=== PATIENT | male | born 1985 | race Caucasian/White ===

== ENCOUNTER 2017-02-11 22:00 | Emergency (ER) | payer OTHER ==
[2017-02-11 22:14] VITALS: BP 126/81; PULSE 79; TEMP 98.9; BMI 32.3
--- NOTE | 2017-02-11 23:31 | PDOC ---
[id number] WOUND Time Seen by Provider: 02/11/17 22:31 - History of Present Illness Initial Comments: 02/11/17 22:37 CHIEF COMPLAINT: abscess to R hand HISTORY OF PRESENT ILLNESS: 31 yo M with no PMH presents to ED with abscess between thumb and index finger on the right hand. Patient states that about 3 months ago he was using a drill and the drill went into his finger. He did not seek medical attention at the time, and the site of injury "healed with a little bubble, but then it kind of went away so I didn't think about it very much." Three days ago he noticed some swelling in the region, and over the past two days it has gotten worse and is now red, swollen, and painful. He reports having "like 7 tetanus shots in the past 5 years." He denies any fever, nausea, vomiting, or diarrhea. PAST MEDICAL HISTORY: Denies past medical history FAMILY HISTORY: Denies SOCIAL HISTORY: Denies tobacco, alcohol, illicit drug use. SURGICAL HISTORY: Denies ALLERGIES: No known drug allergies REVIEW OF SYSTEMS General/Constitutional: Denies fever or chills. Denies weakness, weight change. Cardiovascular: Denies chest pain or shortness of breath. Respiratory: Denies cough, wheezing, or hemoptysis. Gastrointestinal: Denies nausea, vomiting, diarrhea or constipation. Denies rectal bleeding. Musculoskeletal: Denies joint or muscle swelling or pain. Denies neck or back pain. Skin and breasts: Abscess to R hand. Denies rash or easy bruising. PHYSICAL EXAM General Appearance: Well-appearing, appropriately dressed. Respiratory/Chest: Lungs CTAB. Cardiovascular: RRR. S1, S2. Integumentary: 2cm x 2 cm erythematous, indurated abscess to dorsal aspect of R hand between thumb and index finger. Appropriate color, dry, warm. No cyanosis , erythema, jaundice or rash Neurologic: joint cutter machine II-XII intact. Fully oriented, alert. Appropriate mood/affect. Motor strength 5/5. No appreciable EOM palsy, facial droop or sensory deficit. Past History - Past Medical History Allergies/Adverse Reactions: Allergies Allergy/AdvReac Type Severity Reaction Status Date / Time No Known Allergies Allergy Verified 02/11/17 23:01 Home Medications: Ambulatory Orders Sulfamethoxazole/Trimethoprim [Bactrim Ds -] 1 tab PO BID #20 tablet 02/14/17 - Psycho/Social/Smoking Cessation Hx Anxiety: No Suicidal Ideation: No Smoking History: Never smoked Have you smoked in the past 12 months: No Information on smoking cessation initiated: No Hx Alcohol Use: No Drug/Substance Use Hx: No Substance Use Type: None *Physical Exam - Vital Signs Last Vital Signs Temp Pulse Resp BP Pulse Ox 98.9 F 79 18 126/81 100 02/11/17 22:10 02/11/17 22:10 02/11/17 22:10 02/11/17 22:10 02/11/17 22:10 Procedures - Incision and Drainage I&D Site: Right: Other (Hand) Betadine cleansed: Yes Anesthesia: 1% Lidocaine Volume(ml): 3 Blade Size: 11 Attempts: 1 Plain Packing: Yes (.5 inch) Dressing: Yes (xeroform dressing, kerlix bandage) ED Treatment Course - RADIOLOGY Radiology Studies Ordered: Category Date Time Status HAND- RIGHT [RAD] Stat Radiology 02/11/17 22:36 Ordered Medical Decision Making - Medical Decision Making 02/12/17 04:48 31 yo M with no PMH presents to ED with abscess between thumb and index finger on the right hand. -I&D of abscess performed (see procedure note) Advised patient to return in 2 days for wound check and of signs and symptoms for return to ER. Patient verbalized understanding and agrees to plan. *DC/Admit/Observation/Transfer Diagnosis at time of Disposition: Abscess - Discharge Dispostion Disposition: HOME Admit: No - Referrals Referrals: Humaira Traylor MD [Primary Care Provider] - - Patient Instructions Printed Discharge Instructions: DI for Incision and Drainage of a Skin Abscess Additional Instructions: As discussed, please return in 48 hours for a wound check. Please keep the wound site clean and dry for 48 hours, afterwards you may wash with soap and water. If you experience any fever, nausea, vomiting, diarrhea, or notice increased swelling, redness, pain, or warmth to the area of injury, please return to the ER.
--- NOTE | 2017-02-12 00:06 | PDOC ---
*Physical Exam - Vital Signs Last Vital Signs Temp Pulse Resp BP Pulse Ox 98.9 F 79 18 126/81 100 02/11/17 22:10 02/11/17 22:10 02/11/17 22:10 02/11/17 22:10 02/11/17 22:10 Medical Decision Making - Medical Decision Making 02/12/17 00:05 agree with care from MERY Glasgow *DC/Admit/Observation/Transfer Diagnosis at time of Disposition: Abscess - Discharge Dispostion Disposition: HOME - Referrals Referrals: Humaira Traylor MD [Primary Care Provider] - - Patient Instructions Printed Discharge Instructions: DI for Incision and Drainage of a Skin Abscess Additional Instructions: As discussed, please return in 48 hours for a wound check. Please keep the wound site clean and dry for 48 hours, afterwards you may wash with soap and water. If you experience any fever, nausea, vomiting, diarrhea, or notice increased swelling, redness, pain, or warmth to the area of injury, please return to the ER.
[2017-02-12] MEDS ORDERED: ACETAMINOPHEN 325 MG TABLET (FP) ONE (01:08)
== END 2017-02-12 01:12 | disposition home or self-care (01) ==
LOC: SUPCPDRO 22:00 → JER 22:00
PROC: 0H9FXZZ Drainage of Right Hand Skin, External Approach (ICD-10-PCS; principal; 2017-02-11)
DX: L02.511 Cutaneous abscess of right hand (principal)
CPT/HCPCS: 73130-TC-RT; 99283-25

== ENCOUNTER 2017-02-14 18:53 | Emergency (ER) | payer OTHER ==
[2017-02-14 19:03] VITALS: BP 108/76; PULSE 101; TEMP 98.5; BMI 33.0
[2017-02-14] MEDS ORDERED: BACITRACIN 30 GM TUBE TOPICAL OINTMENT ONE (19:22)
--- NOTE | 2017-02-14 19:30 | PDOC ---
Suture Removal/Wound Check HPI - History of Present Illness Chief Complaint: Revisit,Wound Recheck Stated Complaint: FOLLOW UP Time Seen by Provider: 02/14/17 19:05 Date of Last ED visit: 02/11/17 - Previous ED Treatment Type of procedure performed on last visit: Yes: I&D of Abscess Antibiotics Prescribed: No - Onset of Previous Treatment Date of Occurence: 02/14/17 Past History - Past Medical History Allergies/Adverse Reactions: Allergies No Known Allergies Allergy (Verified 02/14/17 19:03) Home Medications: Ambulatory Orders Sulfamethoxazole/Trimethoprim [Bactrim Ds -] 1 tab PO BID #20 tablet 02/14/17 - Immunization History Tetanus Status: Less than 5 years - Social History Smoking Status: Never smoked *DC/Admit/Observation/Transfer Diagnosis at time of Disposition: Abscess - Discharge Dispostion Disposition: HOME Condition at time of disposition: Stable Admit: No - Prescriptions Prescriptions: Sulfamethoxazole/Trimethoprim [Bactrim Ds -] 1 tab PO BID #20 tablet - Referrals Referrals: Humaira Traylor MD [Primary Care Provider] - Tru Prescott MD [Staff Physician] - - Patient Instructions Additional Instructions: Please take medication as prescribed. As discussed, please follow up with a hand specialist within the next 4 days. If you experience any fever, nausea, vomiting, diarrhea, or notice any worsening of the injury site, please return to the ER.
== END 2017-02-14 20:14 | disposition home or self-care (01) ==
LOC: JERFT 18:53
DX: Z09 Encounter for follow-up examination after completed treatment for conditions other than malignant neoplasm (principal); L02.511 Cutaneous abscess of right hand
CPT/HCPCS: 99281-25

== ENCOUNTER 2017-05-26 23:49 | Emergency (ER) | payer OTHER ==
[2017-05-27 01:11] VITALS: TEMP 98; BMI 25.1
[2017-05-27] MEDS ORDERED: LIDOCAINE HCL 1%, 10 MG/ML (50 mL VIAL) INF ONE (01:18)
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
[2017-05-27] MEDS ORDERED: CEFAZOLIN (PRE-DOCKED) 1 GM in DEXTROSE 5%-WATER - 50 ML IVPB ONE (02:45)
[2017-05-27] MEDS ORDERED: CEFAZOLIN (PRE-DOCKED) 50 ML IVPB ONE (03:29)
--- NOTE | 2017-05-27 04:06 | PDOC ---
*Physical Exam - Vital Signs Last Vital Signs Temp Pulse Resp BP Pulse Ox 98 F 85 18 142/96 97 05/27/17 01:04 05/27/17 01:04 05/27/17 01:04 05/27/17 01:04 05/27/17 01:18 ED Treatment Course - Medications Given in the ED: ED Medications Discontinued Medications Generic Name Dose Route Start Last Admin Trade Name Eliazar PRN Reason Stop Dose Admin Cefazolin Sodium 1 gm/ 100 mls @ 100 mls/hr 05/27/17 02:45 05/27/17 03:15 Dextrose IVPB 05/27/17 03:44 100 mls/hr ONCE ONE Administration Lidocaine HCl 5 ml 05/27/17 01:18 05/27/17 03:15 Xylocaine 1% INF 05/27/17 01:19 5 ml ONCE ONE Administration Medical Decision Making - Medical Decision Making 05/27/17 04:06 agree with care from MERY Hernández *DC/Admit/Observation/Transfer Diagnosis at time of Disposition: Finger fracture, left, Laceration - Discharge Dispostion Disposition: HOME - Prescriptions Prescriptions: Cephalexin Monohydrate [Keflex -] 500 mg PO BID #20 capsule - Referrals Referrals: Humaira Traylor MD [Primary Care Provider] - - Patient Instructions Printed Discharge Instructions: DI for Laceration Repair, DI for Suture Removal Additional Instructions: FOLLOW UP WITH YOUR PRIMARY CARE PROVIDER, OR URGENT CARE OR RETURN TO EMERGENCY DEPARTMENT FOR SUTURE REMOVAL IN 14 DAYS. TAKE MEDICATIONS PRESCRIBED. RETURN IF ANY CONCERNS FOR FURTHER EVALUATION. MOTRIN OR TYLENOL FOR PAIN NEEDED. DRESSING CHANGES DAILY X 2 DAYS. 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 Print Language: WOLOF - Post Discharge Activity Work/School Note: Back to Work
[2017-05-27] MEDS ORDERED: ONDANSETRON 4 MG/2 ML VIAL IVPB ONE (04:21)
[2017-05-27] MEDS ORDERED: LABETALOL HCL 5 MG/1 ML (100MG/20 ML VIAL) IVPUSH ONE (04:21)
[2017-05-27 04:39] VITALS: BP 138/87; PULSE 81
== END 2017-05-27 04:41 | disposition home or self-care (01) ==
LOC: JER 23:49
DX: S62.635B Displaced fracture of distal phalanx of left ring finger, initial encounter for open fracture (principal); V94.89XA Other water transport accident, initial encounter; Y93.19 Activity, other involving water and watercraft; Y92.89 Other specified places as the place of occurrence of the external cause; Y99.8 Other external cause status
CPT/HCPCS: 73130-TC-LT; 96365; 99283-25

== ENCOUNTER 2024-11-24 07:53 | Emergency (ER) | payer OTHER ==
[2024-11-24 08:08] VITALS: BP 123/80; PULSE 105; RESP 17; TEMP 98.4; BMI 33.0
[2024-11-24] MEDS ORDERED: AMOX TR/POT CLAV 875MG/125MG TABLETS (FP) ONE (08:36)
[2024-11-24] MEDS ORDERED: IBUPROFEN 400 MG TABLET (FP) PO ONE (08:36)
[2024-11-24] MEDS: AMOX TR/POT CLAV 875MG/125MG TABLETS (FP) PO ONE (08:39)
[2024-11-24] MEDS: IBUPROFEN 400 MG TABLET (FP) PO ONE (08:39)
[2024-11-24 12:55] LABS: HIV INTERPRETATION NEGATIVE (NEGATIVE)
== END 2024-11-24 09:28 | disposition home or self-care (01) ==
LOC: JERFT 07:53
DX: H66.91 Otitis media, unspecified, right ear (principal); J06.9 Acute upper respiratory infection, unspecified; J10.1 Influenza due to other identified influenza virus with other respiratory manifestations; H92.01 Otalgia, right ear; M79.10 Myalgia, unspecified site; R50.9 Fever, unspecified; R09.81 Nasal congestion; R05.9 Cough, unspecified; Z20.822 Contact with and (suspected) exposure to COVID-19
CPT/HCPCS: 0241U-QW; 36415; 86803; 87389; 99283-25